=== PATIENT | female | born 1960 | race Caucasian/White ===

== ENCOUNTER 2017-12-27 12:33 | Emergency (ER) | payer MEDICARE, OTHER ==
[2017-12-27] MEDS ORDERED: Ketorolac Tromethamine 30 MG/ML VIAL ONE (13:25)
== END 2017-12-27 13:54 | disposition home or self-care (01) ==
LOC: ERS 12:33
DX: K03.81 Cracked tooth (principal); K02.9 Dental caries, unspecified; I10 Essential (primary) hypertension; F41.9 Anxiety disorder, unspecified; F31.9 Bipolar disorder, unspecified; F17.210 Nicotine dependence, cigarettes, uncomplicated
CPT/HCPCS: 96372; 99406; J1885

== ENCOUNTER 2022-10-30 09:49 | Emergency (ER) | payer OTHER | END 2022-10-30 11:10 | disposition home or self-care (01) | LOC: ERS 09:49 | DX: L42 Pityriasis rosea (principal) | CPT/HCPCS: 99282 ==

== ENCOUNTER 2023-01-09 15:19 | Emergency (ER) | payer OTHER ==
[2023-01-09 17:23] LABS: #Basophils 0.1 thou/uL (0.0-0.2); #Eosinphils 0.2 thou/uL (0.0-0.7); #Lymphocytes 2.3 thou/uL (1.20-3.40); #Monocytes 0.4 thou/uL (0.11-0.59); #Neutrophils 5.8 thou/uL (1.40-6.50); %Basophils 0.8 % (0.0-1.0); %Eosinophils 2.1 % (0.0-10.0); %Neutrophils 66.2 % (42.0-75.0); Hemoglobin 11.8 g/dL (12.0-16.0); Mean Corpuscular HGB CONC 38.2 g/dL (32.0-36.0); Mean Platelet Volume 7.6 fL (7.4-10.4); Platelet Count 235 10x3/uL (130-400); RBC Distribution Width 13.7 % (11.5-14.5); Red Blood Cell (RBC) Count 3.47 mill/uL (4.20-5.40); White Blood Cell (WBC) Count 8.7 10x3/uL (4.8-10.8)
[2023-01-09 18:55] LABS: Carbon Dioxide Less than 16 mmol/L (23-31); Chloride 103 mmol/L (98-107); Potassium 5.5 mmol/L (3.5-5.1)
[2023-01-09 18:56] LABS: BUN (Urea Nitrogen) 6 mg/dL (9.8-20.1); Calc. Creatinine Clearance 0 mL/min (70-130); Estimated GFR 58
[2023-01-09 18:57] LABS: Albumin 3.9 g/dL (3.4-4.8); Alkaline Phosphatase 117 U/L (40-110); Bilirubin, Total 0.5 mg/dL (0.2-1.2); Calcium 8.9 mg/dL (7.6-10.4); Globulin 6.9 g/dL (2.4-3.5); Glucose 100 mg/dL (80-115)
[2023-01-09 19:00] LABS: Protein, Total 10.8 g/dL (5.8-8.1)
[2023-01-09 19:13] LABS: Sodium 134 mmol/L (136-145)
[2023-01-09 19:15] LABS: ALT (SGPT) Less than 35 U/L (8-55)
== END 2023-01-09 17:44 | disposition left against medical advice (07) ==
LOC: ERS 15:19
DX: R21 Rash and other nonspecific skin eruption (principal)
CPT/HCPCS: 36415; 80053; 85025; 87040; 87070; 87205; 99283

== ENCOUNTER 2023-01-19 07:11 | Emergency (ER) | payer OTHER ==
[2023-01-19] MEDS ORDERED: Lorazepam 1 MG TAB ONE (09:07)
[2023-01-19] MEDS ORDERED: Ketorolac Tromethamine 30 MG/ML VIAL ONE (09:08)
== END 2023-01-19 11:25 | disposition home or self-care (01) ==
LOC: ERS 07:11
DX: L40.9 Psoriasis, unspecified (principal); I10 Essential (primary) hypertension
CPT/HCPCS: 96372; 99282; J1885

== ENCOUNTER 2023-06-08 12:32 | Emergency (ER) | payer OTHER | END 2023-06-08 14:08 | disposition home or self-care (01) | LOC: ERS 12:32 | DX: S00.01XA Abrasion of scalp, initial encounter (principal); I10 Essential (primary) hypertension; F17.210 Nicotine dependence, cigarettes, uncomplicated; W01.0XXA Fall on same level from slipping, tripping and stumbling without subsequent striking against object, initial encounter | CPT/HCPCS: 70450 ==

== ENCOUNTER 2023-08-03 15:17 | Inpatient (IN) | payer OTHER ==
[2023-08-03] MEDS ORDERED: Rocuronium Bromide 10 MG/ML (10ML VIAL) ONE (15:24)
[2023-08-03] MEDS ORDERED: Fentanyl CADD 100 ML IV SCH ×2 (15:45→19:45)
[2023-08-03] MEDS ORDERED: Octreotide Acetate 1,250 MCG in Sodium Chloride 0.9% 250 ML 250 ML IVPB SCH (15:45)
[2023-08-03] MEDS ORDERED: Octreotide Acetate 100 MCG/ML VIAL SLOW IVP SCH (15:45)
[2023-08-03] MEDS ORDERED: Ondansetron PF 4 MG/2 ML Vial ONE (15:49)
[2023-08-03 16:00] LABS: #Monocytes 0.6 thou/uL (0.11-0.59); #Neutrophils 8.6 thou/uL (1.40-6.50); %Lymphocytes 6.7 % (21.0-51.0); %Monocytes 5.7 % (0.0-10.0); %Neutrophils 87.1 % (42.0-75.0); Hematocrit 35.2 % (36.0-47.0); Hemoglobin 12.1 g/dL (12.0-16.0); Mean Corpuscular HGB CONC 34.4 g/dL (32.0-36.0); Mean Corpuscular Hemoglobin 31.6 pg (27.0-31.0); Mean Corpuscular Volume 91.9 fl (78.0-98.0); Mean Platelet Volume 9.5 fL (7.4-10.4); Platelet Count 208 10x3/uL (130-400); RBC Distribution Width 13.2 % (11.5-14.5); Red Blood Cell (RBC) Count 3.83 mill/uL (4.20-5.40); White Blood Cell (WBC) Count 9.9 10x3/uL (4.8-10.8)
[2023-08-03 16:11] LABS: Bilirubin Negative (Negative); Blood, Urine 3+ (Negative); CAUTI Indications for Culture Alt mental st,lethar; Clarity Clear (Clear); Glucose, Urine (Dipstick) 70 mg/dL (Negative); Ketone, Urine Negative (Negative); Leukocyte Negative Leu/uL (Negative); Nitrite Negative (Negative); Protein, Urine (Dipstick) 20 mg/dL (Neg-Trace); RBC/HPF 0-3 HPF (0-3); Renal Epithelial 0-3 HPF (None Seen); Specific Gravity, Urine 1.027 (1.002-1.036); Squamous Epithelial None Seen HPF (0-3); Urobilinogen Normal mg/dL (Less than 2); pH, Urine 5.5 (5.0-9.0)
[2023-08-03 16:12] LABS: Bacteria/HPF 1+ HPF (None Seen)
[2023-08-03 16:13] LABS: Urine Culture Reflex Yes Yes
[2023-08-03] MEDS ORDERED: cefTRIAXone (ROCEPHIN) 1 GM VIAL ONE (16:13)
[2023-08-03] MEDS ORDERED: Pantoprazole 40 MG VIAL ONE (16:13)
[2023-08-03] MEDS ORDERED: Sodium Chloride 0.9% 100 ML ONE (16:13)
[2023-08-03 16:14] LABS: Actual Bicarbonate (HCO3a) 24.5 mEq/L (22-28); Analyzer IN Cardio ER; CO2 Tension 44.2 mmHg (35.0-45.0); Calcium, Ionized (arterial) 1.18 mmol/L (1.12-1.30); Carboxyhemoglobin (COHb) 0.2 gm% (0.0-3.0); Hematocrit-ABG 34 % (36.0-47.0); Hemoglobin (Hb) 11.6 g/dL (12.0-16.0); O2 Tension (PaO2), arterial 511.5 mmHg (> 80.0); Potassium - ABG Lab 4.81 mmol/L (3.70-5.30); pH, Arterial 7.362 (7.35-7.45)
[2023-08-03 16:15] LABS: Amphetamine Detected (NotDetected); Barbiturates Screen Not Detected (NotDetected); Benzodiazepine Screen Detected (NotDetected); Cocaine Metabolite Screen Not Detected (NotDetected); Methadone Not Detected (NotDetected); Methamphetamine Detected (NotDetected); Opiate Screen Not Detected (NotDetected); Oxycodone Screen Not Detected (NotDetected); Phencyclidine (PCP) Not Detected (NotDetected); THC/Cannabinoid Screen Detected (NotDetected); Tricyclic Screen Detected (NotDetected)
[2023-08-03 16:16] LABS: PTT 27.4 sec (22.9-36.1); Prothrombin Time 14.2 sec (12.0-14.7)
[2023-08-03 16:17] LABS: INR-International Normal Ratio 1.1
[2023-08-03 16:17] LABS: Puncture Site Right Radial
[2023-08-03 16:29] LABS: ALT (SGPT) 46 U/L (8-55); AST (SGOT) 51 U/L (5-34); Albumin 3.9 g/dL (3.4-4.8); Alkaline Phosphatase 74 U/L (40-110); Anion Gap 19 mmol/L (10-20); BUN (Urea Nitrogen) 31 mg/dL (9.8-20.1); Bilirubin, Total 0.5 mg/dL (0.2-1.2); Calc. Creatinine Clearance 0 mL/min (70-130); Carbon Dioxide 18 mmol/L (23-31); Chloride 103 mmol/L (98-107); Estimated GFR 42; Globulin 2.9 g/dL (2.4-3.5); Glucose 210 mg/dL (80-115); Protein, Total 6.8 g/dL (5.8-8.1); Sodium 135 mmol/L (136-145)
[2023-08-03] MEDS ORDERED: Octreotide Acetate 500 MCG/ML VIAL ONE (16:35)
[2023-08-03 16:36] LABS: Troponin I Less than 0.010 ng/mL (< 0.028)
[2023-08-03] MEDS ORDERED: Aztreonam 1 GM in Sodium Chloride 0.9% 100 ML IVPB SCH (17:00)
[2023-08-03 17:32] LABS: Acetaminophen Less than 10 mcg/mL (10.0-30.0); Alcohol Less than 10.0 mg/dL (Less than 10); Salicylate Less than 8.0 mg/dL (15.0-30.0)
[2023-08-03] MEDS ORDERED: Ondansetron PF 4 MG/2 ML Vial IVP PRN (19:03)
[2023-08-03] MEDS ORDERED: Acetaminophen 650 MG Suppository PR PRN (19:03)
[2023-08-03] MEDS ORDERED: Propofol BOLUS 1,000 MG/100 ML VIAL IV PRN (19:45)
[2023-08-03] MEDS ORDERED: Morphine 2 MG/ML VIAL SLOW IVP PRN (19:45)
[2023-08-03] MEDS ORDERED: Lorazepam 2 MG/ML VIAL SLOW IVP PRN (19:45)
[2023-08-03] MEDS ORDERED: Fentanyl BOLUS 250 ML IVPB PRN (19:45)
[2023-08-03] MEDS ORDERED: Propofol 1,000 MG/100 ML VIAL IV PRN (19:45)
[2023-08-03] MEDS ORDERED: DISCONTINUE PREVIOUS NARCOTIC PAIN MEDICATIONS AND BENZODIAZEPINES FS SCH (19:45)
[2023-08-03 20:53] LABS: Lactic Acid 2.2 mmol/L (0.5-2.2)
[2023-08-03] MEDS: Pantoprazole 40 MG VIAL IVP SCH (21:31)
[2023-08-03] MEDS: Multivitamins, Adult 10 ML, Folic Acid 1 MG, Thiamine HCl 100 MG in Dextrose 5 %-0.45 %... IV SCH (21:35)
[2023-08-04] MEDS: Aztreonam 1 GM in Sodium Chloride 0.9% 100 ML IVPB SCH ×3 (01:52→17:15)
[2023-08-04 03:55] LABS: #Eosinphils 0.1 thou/uL (0.0-0.7); #Monocytes 0.8 thou/uL (0.11-0.59); #Neutrophils 7.4 thou/uL (1.40-6.50); %Basophils 0.3 % (0.0-1.0); %Eosinophils 1.1 % (0.0-10.0); %Lymphocytes 18.4 % (21.0-51.0); %Monocytes 7.4 % (0.0-10.0); %Neutrophils 72.3 % (42.0-75.0); Hematocrit 40.3 % (36.0-47.0); Hemoglobin 13.6 g/dL (12.0-16.0); Mean Corpuscular HGB CONC 33.7 g/dL (32.0-36.0); Mean Corpuscular Hemoglobin 30.9 pg (27.0-31.0); Mean Corpuscular Volume 91.6 fl (78.0-98.0); Mean Platelet Volume 9.7 fL (7.4-10.4); Platelet Count 224 10x3/uL (130-400); RBC Distribution Width 13.4 % (11.5-14.5); White Blood Cell (WBC) Count 10.2 10x3/uL (4.8-10.8)
[2023-08-04 04:17] VITALS: BMI 29.7
[2023-08-04 04:22] LABS: Anion Gap 15 mmol/L (10-20); BUN (Urea Nitrogen) 21 mg/dL (9.8-20.1); Calc. Creatinine Clearance 86 mL/min (70-130); Calcium 8.6 mg/dL (7.8-10.44); Carbon Dioxide 23 mmol/L (23-31); Chloride 107 mmol/L (98-107); Estimated GFR 67; Glucose 149 mg/dL (80-115); Potassium 4.1 mmol/L (3.5-5.1); Sodium 141 mmol/L (136-145)
[2023-08-04 04:48] LABS: CK (CPK) 11043 U/L (29-168)
[2023-08-04 07:15] LABS: Actual Bicarbonate (HCO3a) 22.5 mEq/L (22-28); Base Excess (BEa) -1.8 mEq/L (-2.0 to +3.0); CO2 Tension 36.8 mmHg (35.0-45.0); Calcium, Ionized (arterial) 1.15 mmol/L (1.12-1.30); Carboxyhemoglobin (COHb) 0.7 gm% (0.0-3.0); Hematocrit-ABG 41 % (36.0-47.0); Hemoglobin (Hb) 13.8 g/dL (12.0-16.0); pH, Arterial 7.404 (7.35-7.45)
[2023-08-04 07:16] LABS: Puncture Site RRA
[2023-08-04] MEDS: Pantoprazole 40 MG VIAL IVP SCH (09:16)
[2023-08-04] MEDS ORDERED: DC Sedation Protocol FS ONE (13:13)
[2023-08-04] MEDS: Sodium Chloride 0.9% 1,000 ML IV SCH ×2 (17:15→17:32)
[2023-08-04] MEDS: Multivitamins, Adult 10 ML, Folic Acid 1 MG, Thiamine HCl 100 MG in Dextrose 5 %-0.45 %... IV SCH (20:05)
[2023-08-05] MEDS: Aztreonam 1 GM in Sodium Chloride 0.9% 100 ML IVPB SCH ×3 (00:05→16:31)
[2023-08-05] MEDS: Pantoprazole 40 MG VIAL IVP SCH ×2 (02:10→13:55)
[2023-08-05] MEDS: Sodium Chloride 0.9% 1,000 ML IV SCH (02:11)
[2023-08-05 04:38] LABS: Anion Gap 18 mmol/L (10-20); BUN (Urea Nitrogen) 15 mg/dL (9.8-20.1); Calc. Creatinine Clearance 108 mL/min (70-130); Calcium 8.2 mg/dL (7.8-10.44); Carbon Dioxide 17 mmol/L (23-31); Chloride 106 mmol/L (98-107); Estimated GFR 87; Glucose 91 mg/dL (80-115); Potassium 4.4 mmol/L (3.5-5.1); Sodium 137 mmol/L (136-145)
[2023-08-05 05:24] LABS: CK (CPK) 9528 U/L (29-168)
[2023-08-05 06:30] LABS: #Eosinphils 0.2 thou/uL (0.0-0.7); #Monocytes 0.7 thou/uL (0.11-0.59); #Neutrophils 6.6 thou/uL (1.40-6.50); %Basophils 0.2 % (0.0-1.0); %Eosinophils 1.6 % (0.0-10.0); %Lymphocytes 20.8 % (21.0-51.0); %Neutrophils 69.6 % (42.0-75.0); Hematocrit 34.2 % (36.0-47.0); Hemoglobin 11.1 g/dL (12.0-16.0); Mean Corpuscular HGB CONC 32.5 g/dL (32.0-36.0); Mean Corpuscular Hemoglobin 30.7 pg (27.0-31.0); Mean Corpuscular Volume 94.7 fl (78.0-98.0); Mean Platelet Volume 9.6 fL (7.4-10.4); Platelet Count 161 10x3/uL (130-400); RBC Distribution Width 13.3 % (11.5-14.5); Red Blood Cell (RBC) Count 3.61 mill/uL (4.20-5.40); White Blood Cell (WBC) Count 9.5 10x3/uL (4.8-10.8)
[2023-08-05] MEDS: Sodium Chloride 0.45% 1,000 ML IV SCH ×3 (09:08→20:41)
[2023-08-05] MEDS: Multivitamins, Adult 10 ML, Folic Acid 1 MG, Thiamine HCl 100 MG in Dextrose 5 %-0.45 %... IV SCH (21:07)
[2023-08-06] MEDS: Aztreonam 1 GM in Sodium Chloride 0.9% 100 ML IVPB SCH ×3 (00:12→16:21)
[2023-08-06 05:39] LABS: #Eosinphils 0.2 thou/uL (0.0-0.7); #Monocytes 0.5 thou/uL (0.11-0.59); #Neutrophils 6.2 thou/uL (1.40-6.50); %Basophils 0.2 % (0.0-1.0); %Eosinophils 1.8 % (0.0-10.0); %Lymphocytes 25.8 % (21.0-51.0); %Monocytes 4.8 % (0.0-10.0); %Neutrophils 66.4 % (42.0-75.0); Hematocrit 33.4 % (36.0-47.0); Hemoglobin 11.3 g/dL (12.0-16.0); Mean Corpuscular HGB CONC 33.8 g/dL (32.0-36.0); Mean Corpuscular Hemoglobin 30.7 pg (27.0-31.0); Mean Platelet Volume 9.2 fL (7.4-10.4); Platelet Count 207 10x3/uL (130-400); RBC Distribution Width 13.2 % (11.5-14.5); Red Blood Cell (RBC) Count 3.68 mill/uL (4.20-5.40); White Blood Cell (WBC) Count 9.3 10x3/uL (4.8-10.8)
[2023-08-06 06:13] LABS: Mean Corpuscular Volume 90.8 fl (78.0-98.0)
[2023-08-06 06:14] LABS: Anion Gap 11 mmol/L (10-20); BUN (Urea Nitrogen) 9 mg/dL (9.8-20.1); Calc. Creatinine Clearance 104 mL/min (70-130); Calcium 8.1 mg/dL (7.8-10.44); Carbon Dioxide 24 mmol/L (23-31); Chloride 106 mmol/L (98-107); Estimated GFR 83; Glucose 113 mg/dL (80-115); Potassium 3.3 mmol/L (3.5-5.1); Sodium 138 mmol/L (136-145)
[2023-08-06 06:27] LABS: CK (CPK) 5587 U/L (29-168)
[2023-08-06] MEDS: Acetaminophen 650 MG/20.3 ML UDCUP PO PRN ×3 (08:58→20:56)
[2023-08-06] MEDS: Multivitamins, Adult 10 ML, Folic Acid 1 MG, Thiamine HCl 100 MG in Dextrose 5 %-0.45 %... IV SCH (20:52)
[2023-08-07] MEDS: Aztreonam 1 GM in Sodium Chloride 0.9% 100 ML IVPB SCH ×3 (00:13→16:50)
[2023-08-07] MEDS ORDERED: hydrOXYzine 10 MG TAB PO SCH (01:15)
[2023-08-07] MEDS: Sodium Chloride 0.45% 1,000 ML IV SCH ×4 (02:42→20:39)
[2023-08-07 05:47] LABS: #Eosinphils 0.1 thou/uL (0.0-0.7); #Monocytes 0.3 thou/uL (0.11-0.59); #Neutrophils 3.2 thou/uL (1.40-6.50); %Basophils 0.3 % (0.0-1.0); %Eosinophils 2.4 % (0.0-10.0); %Lymphocytes 34.3 % (21.0-51.0); %Monocytes 5.9 % (0.0-10.0); %Neutrophils 55.9 % (42.0-75.0); Hematocrit 28.4 % (36.0-47.0); Hemoglobin 9.6 g/dL (12.0-16.0); Mean Corpuscular HGB CONC 33.8 g/dL (32.0-36.0); Mean Corpuscular Hemoglobin 31.2 pg (27.0-31.0); Mean Corpuscular Volume 92.2 fl (78.0-98.0); Mean Platelet Volume 9.6 fL (7.4-10.4); Platelet Count 197 10x3/uL (130-400); RBC Distribution Width 13.2 % (11.5-14.5); Red Blood Cell (RBC) Count 3.08 mill/uL (4.20-5.40); White Blood Cell (WBC) Count 5.8 10x3/uL (4.8-10.8)
[2023-08-07 06:16] LABS: Anion Gap 14 mmol/L (10-20); BUN (Urea Nitrogen) 8 mg/dL (9.8-20.1); Calc. Creatinine Clearance 112 mL/min (70-130); Calcium 8.1 mg/dL (7.8-10.44); Carbon Dioxide 22 mmol/L (23-31); Chloride 111 mmol/L (98-107); Estimated GFR 92; Glucose 108 mg/dL (80-115); Potassium 3.6 mmol/L (3.5-5.1); Sodium 143 mmol/L (136-145)
[2023-08-07] MEDS: Acetaminophen 650 MG/20.3 ML UDCUP PO PRN ×3 (06:22→20:31)
[2023-08-07] MEDS ORDERED: Lorazepam 2 MG/ML VIAL SLOW IVP SCH (06:30)
[2023-08-07 06:33] LABS: CK (CPK) 4351 U/L (29-168)
[2023-08-07] MEDS ORDERED: FLU VACC QS2023-24(6MOS UP)/PF 60 MCG/0.5 ML SYRINGE IM ONE (09:00)
[2023-08-07] MEDS: Multivitamins, Adult 10 ML, Folic Acid 1 MG, Thiamine HCl 100 MG in Dextrose 5 %-0.45 %... IV SCH (21:48)
[2023-08-08] MEDS ORDERED: hydrOXYzine 10 MG TAB PO SCH (00:30)
[2023-08-08] MEDS: Aztreonam 1 GM in Sodium Chloride 0.9% 100 ML IVPB SCH ×2 (00:52→10:00)
[2023-08-08] MEDS: Acetaminophen 650 MG/20.3 ML UDCUP PO PRN (04:54)
[2023-08-08] MEDS: Sodium Chloride 0.45% 1,000 ML IV SCH ×2 (06:26→15:40)
[2023-08-08] MEDS: Acetaminophen/Codeine 30-300mg Tablet PO PRN ×2 (13:58→21:02)
[2023-08-08] MEDS: Multivitamins, Adult 10 ML, Folic Acid 1 MG, Thiamine HCl 100 MG in Dextrose 5 %-0.45 %... IV SCH (21:03)
[2023-08-09] MEDS: Multivitamins, Adult 10 ML, Folic Acid 1 MG, Thiamine HCl 100 MG in Dextrose 5 %-0.45 %... IV SCH ×2 (00:25→20:41)
[2023-08-09] MEDS: Sodium Chloride 0.45% 1,000 ML IV SCH ×3 (00:39→20:43)
[2023-08-09] MEDS: Acetaminophen 650 MG/20.3 ML UDCUP PO PRN ×3 (02:50→20:38)
[2023-08-09 09:19] LABS: #Basophils 0.1 thou/uL (0.0-0.2); #Eosinphils 0.2 thou/uL (0.0-0.7); #Monocytes 0.7 thou/uL (0.11-0.59); #Neutrophils 5.9 thou/uL (1.40-6.50); %Basophils 0.6 % (0.0-1.0); %Eosinophils 2.1 % (0.0-10.0); %Lymphocytes 21.2 % (21.0-51.0); %Monocytes 7.6 % (0.0-10.0); %Neutrophils 67.2 % (42.0-75.0); Hematocrit 33.5 % (36.0-47.0); Hemoglobin 11.3 g/dL (12.0-16.0); Mean Corpuscular HGB CONC 33.7 g/dL (32.0-36.0); Mean Corpuscular Volume 91.8 fl (78.0-98.0); Mean Platelet Volume 9.1 fL (7.4-10.4); Platelet Count 258 10x3/uL (130-400); RBC Distribution Width 13.1 % (11.5-14.5); Red Blood Cell (RBC) Count 3.65 mill/uL (4.20-5.40); White Blood Cell (WBC) Count 8.7 10x3/uL (4.8-10.8)
[2023-08-09 11:37] LABS: Chloride 108 mmol/L (98-107); Potassium 3.5 mmol/L (3.5-5.1); Sodium 142 mmol/L (136-145)
[2023-08-09 11:38] LABS: Glucose 102 mg/dL (80-115)
[2023-08-09 11:40] LABS: Anion Gap 15 mmol/L (10-20); Carbon Dioxide 23 mmol/L (23-31)
[2023-08-09 11:42] LABS: BUN (Urea Nitrogen) 6 mg/dL (9.8-20.1); Calc. Creatinine Clearance 106 mL/min (70-130); Estimated GFR 86
[2023-08-09 11:44] LABS: CK (CPK) 1636 U/L (29-168)
[2023-08-09] MEDS ORDERED: hydrOXYzine 10 MG TAB PO PRN (21:06)
[2023-08-10 04:16] VITALS: BP 173/86; TEMP 98.6
[2023-08-10] MEDS: Sodium Chloride 0.45% 1,000 ML IV SCH (05:45)
== END 2023-08-10 10:57 | disposition home or self-care (01) | DRG 917 ==
LOC: ERS 15:17 → CCU 17:35 → T4-A 08-05 13:40
PROVIDERS: ADMIT Emergency Medicine; ATTEND Emergency Medicine
PROC: 0T9B70Z Drainage of Bladder with Drainage Device, Via Natural or Artificial Opening (ICD-10-PCS; principal; 2023-08-03)
PROC: 0BH17EZ Insertion of Endotracheal Airway into Trachea, Via Natural or Artificial Opening (ICD-10-PCS; 2023-08-03)
PROC: 4A133R1 Monitoring of Arterial Saturation, Peripheral, Percutaneous Approach (ICD-10-PCS; 2023-08-03)
PROC: 5A1935Z Respiratory Ventilation, Less than 24 Consecutive Hours (ICD-10-PCS; 2023-08-03)
DX: T42.4X1A Poisoning by benzodiazepines, accidental (unintentional), initial encounter (principal); G92.8 Other toxic encephalopathy; J96.90 Respiratory failure, unspecified, unspecified whether with hypoxia or hypercapnia; K92.2 Gastrointestinal hemorrhage, unspecified; N17.9 Acute kidney failure, unspecified; E87.20 Acidosis, unspecified; M62.82 Rhabdomyolysis; R41.82 Altered mental status, unspecified; S09.90XA Unspecified injury of head, initial encounter; Z88.0 Allergy status to penicillin; F19.10 Other psychoactive substance abuse, uncomplicated; I10 Essential (primary) hypertension; Z98.890 Other specified postprocedural states; F41.9 Anxiety disorder, unspecified; F31.9 Bipolar disorder, unspecified; F17.210 Nicotine dependence, cigarettes, uncomplicated; Z79.899 Other long term (current) drug therapy; F10.10 Alcohol abuse, uncomplicated; I65.22 Occlusion and stenosis of left carotid artery
CPT/HCPCS: 0042T; 31500; 36415; 36600; 51702; 70450; 70496; 70498; 71045; 74177; 80048; 80053; 80306; 80307; 81001; 82274; 82550; 82805; 83605; 84443; 84484; 85025; 85610; 85730; 86850; 86900; 86901; 87040; 87077; 87086; 87149; 93005; 94002; 94003; 96365; 96366; 96368; 96375; C9113; J0457; J0696; J2060; J2354; J2405; J2704; J3010; J3411; J3490; J7042; J7050

== ENCOUNTER 2023-09-15 09:06 | Emergency (ER) | payer OTHER ==
[2023-09-15 16:34] LABS: #Eosinphils 0.2 thou/uL (0.0-0.7); #Monocytes 0.5 thou/uL (0.11-0.59); #Neutrophils 3.6 thou/uL (1.40-6.50); %Basophils 0.3 % (0.0-1.0); %Eosinophils 2.2 % (0.0-10.0); %Lymphocytes 36.4 % (21.0-51.0); %Monocytes 6.7 % (0.0-10.0); Hematocrit 34.5 % (36.0-47.0); Hemoglobin 12.1 g/dL (12.0-16.0); Mean Corpuscular HGB CONC 35.1 g/dL (32.0-36.0); Mean Corpuscular Hemoglobin 30.7 pg (27.0-31.0); Mean Corpuscular Volume 87.6 fl (78.0-98.0); Mean Platelet Volume 9.4 fL (7.4-10.4); Platelet Count 238 10x3/uL (130-400); Red Blood Cell (RBC) Count 3.94 mill/uL (4.20-5.40); White Blood Cell (WBC) Count 6.7 10x3/uL (4.8-10.8)
[2023-09-15 16:58] LABS: ALT (SGPT) 24 U/L (8-55); AST (SGOT) 23 U/L (5-34); Acetaminophen Less than 10 mcg/mL (10.0-30.0); Albumin 3.6 g/dL (3.4-4.8); Alcohol Less than 10.0 mg/dL (Less than 10); Alkaline Phosphatase 90 U/L (40-110); Anion Gap 16 mmol/L (10-20); BUN (Urea Nitrogen) 15 mg/dL (9.8-20.1); Bilirubin, Total 0.4 mg/dL (0.2-1.2); Calc. Creatinine Clearance 0 mL/min (70-130); Calcium 8.6 mg/dL (7.8-10.44); Carbon Dioxide 20 mmol/L (23-31); Chloride 106 mmol/L (98-107); Estimated GFR 74; Globulin 3.6 g/dL (2.4-3.5); Glucose 87 mg/dL (80-115); Lipase 26 U/L (8-78); Potassium 3.9 mmol/L (3.5-5.1); Protein, Total 7.2 g/dL (5.8-8.1); Salicylate Less than 8.0 mg/dL (15.0-30.0); Sodium 138 mmol/L (136-145)
[2023-09-15 17:02] LABS: Troponin I Less than 0.010 ng/mL (< 0.028)
== END 2023-09-15 17:46 | disposition home or self-care (01) ==
LOC: ERS 09:06
DX: R41.82 Altered mental status, unspecified (principal); R47.81 Slurred speech
CPT/HCPCS: 36415; 36416; 70450; 80053; 80307; 83690; 83735; 84443; 84484; 85025; 93005

== ENCOUNTER 2024-03-03 22:00 | Emergency (ER) | payer OTHER ==
[2024-03-03] MEDS ORDERED: LORazepam 2 MG/ML SYR.(CARPUJECT) ONE (22:37)
== END 2024-03-04 00:11 | disposition home or self-care (01) ==
LOC: ERS 22:00
DX: F10.129 Alcohol abuse with intoxication, unspecified (principal)
CPT/HCPCS: 99284; J2060